=== PATIENT | female | born 1985 | race Caucasian/White ===

== ENCOUNTER 2016-08-02 07:18 | Emergency (ER) | payer OTHER ==
[2016-08-02] MEDS ORDERED: ORPHENADRINE 60 MG/2 ML AMP ONE (08:07)
[2016-08-02] MEDS ORDERED: KETOROLAC 60 MG/2 ML VIAL IM ONE (08:07)
== END 2016-08-02 08:40 | disposition home or self-care (01) ==
LOC: ER 07:18
CPT/HCPCS: 72050; 96372